=== PATIENT | male | born 1990 | race Caucasian/White ===

== ENCOUNTER 2023-04-29 00:53 | Emergency (ER) | payer OTHER ==
[~2023-04-29] VITALS: Ht 193 cm; Wt 117.9 kg
[2023-04-29 01:21] VITALS: BP 133/89
[2023-04-29] MEDS ORDERED: OXYC5 PO (02:41)
== END 2023-04-29 03:09 | disposition home or self-care (01) ==
LOC: ER 00:53
DX: S52.021A Displaced fracture of olecranon process without intraarticular extension of right ulna, initial encounter for closed fracture (principal); S42.021A Displaced fracture of shaft of right clavicle, initial encounter for closed fracture; V18.4XXA Pedal cycle driver injured in noncollision transport accident in traffic accident, initial encounter
CPT/HCPCS: 29105; 73000; 73070; 99283-25; A9270